=== PATIENT | male | born 1990 | race Caucasian/White ===

== ENCOUNTER 2016-11-02 18:25 | Emergency (ER) | payer MEDICAID, OTHER ==
[~2016-11-02] VITALS: Ht 172.7 cm; Wt 77.1 kg
[2016-11-02 18:25] VITALS: BP 165/115
[~2016-11-02 18:25] MED LIST: ACET500C OR; ALBUTEROL INH; BACT800T5 PO; LORT5TAB PO; MOTR200T4 PO; NAPR500T2 PO; NICO7DIS4 TD
[2016-11-02] MEDS ORDERED: IBUP-1114 PO (18:49)
[2016-11-02] MEDS ORDERED: TIZA4CAP3 PO (18:49)
== END 2016-11-02 21:03 | disposition left against medical advice (07) ==
LOC: M ED 20:14
DX: Z53.29 Procedure and treatment not carried out because of patient's decision for other reasons (principal)

== ENCOUNTER 2017-08-11 17:02 | Emergency (ER) | payer OTHER ==
[~2017-08-11] VITALS: Ht 172.7 cm; Wt 76.4 kg
[2017-08-11 17:02] VITALS: BP 142/71
[~2017-08-11 17:02] MED LIST changes: +IBUP-1114 PO; -NAPR500T2 PO; +NAPR500T3 PO; +TIZA4CAP3 PO
[2017-08-11] MEDS ORDERED: MOBI15TA PO (17:07)
[2017-08-11] MEDS ORDERED: PERC5TAB12 PO (17:23)
[2017-08-11] MEDS ORDERED: AMOX500C PO (17:23)
[2017-08-11] MEDS ORDERED: AMOXICILLIN 500 MG CAP PO ONE (17:30)
== END 2017-08-11 17:42 | disposition home or self-care (01) ==
LOC: M ED 17:02
DX: S02.5XXA Fracture of tooth (traumatic), initial encounter for closed fracture (principal); X58.XXXA Exposure to other specified factors, initial encounter; Y92.89 Other specified places as the place of occurrence of the external cause; Y93.89 Activity, other specified; Y99.9 Unspecified external cause status

== ENCOUNTER 2018-03-27 14:38 | Emergency (ER) | payer OTHER ==
[2018-03-27] MEDS: NAPROXEN 250 MG TAB PO (15:58)
== END 2018-03-27 16:13 | disposition home or self-care (01) ==
LOC: M ED 14:38
DX: M70.22 Olecranon bursitis, left elbow (principal); I10 Essential (primary) hypertension; K21.9 Gastro-esophageal reflux disease without esophagitis; F20.9 Schizophrenia, unspecified; K76.89 Other specified diseases of liver; Z88.5 Allergy status to narcotic agent; Z88.8 Allergy status to other drugs, medicaments and biological substances; Z77.098 Contact with and (suspected) exposure to other hazardous, chiefly nonmedicinal, chemicals
CPT/HCPCS: 99282

== ENCOUNTER 2018-07-13 22:26 | Emergency (ER) | payer OTHER ==
[2018-07-13] MEDS: KETOROLAC 60 MG/2 ML VIAL (J1885) IM (23:23)
[2018-07-13] MEDS: BACTRIM 160MG/800MG DS TAB PO (23:23)
== END 2018-07-13 23:55 | disposition home or self-care (01) ==
LOC: M ED 22:26
DX: L03.114 Cellulitis of left upper limb (principal); B19.20 Unspecified viral hepatitis C without hepatic coma; Z88.5 Allergy status to narcotic agent; Z88.8 Allergy status to other drugs, medicaments and biological substances
CPT/HCPCS: J1885

== ENCOUNTER 2018-08-08 21:20 | Emergency (ER) | payer OTHER | END 2018-08-09 03:08 | disposition left against medical advice (07) | LOC: M ED 08-09 03:08 | DX: M79.603 Pain in arm, unspecified (principal); Z53.21 Procedure and treatment not carried out due to patient leaving prior to being seen by health care provider ==

== ENCOUNTER 2019-01-30 23:26 | Emergency (ER) | payer OTHER, SELFPAY ==
[~2019-01-30] VITALS: Ht 172.7 cm; Wt 92.7 kg
[~2019-01-30 23:26] MED LIST changes: +AMOX500C PO; +IBUP200T45 PO; +MOBI15TA PO; +NAPR-837 PO; +NAPR-885 PO; -NAPR500T3 PO; +NORC1TAB7 PO; +PERC5TAB12 PO; +TIZA4CAP PO; -TIZA4CAP3 PO
[2019-01-31] MEDS ORDERED: FLUORESCEIN OPHTH 1 MG STRIP OS ONE
[2019-01-31] MEDS ORDERED: TETRACAINE 0.5% OPHTH SOLN 4ML OS ONE
[2019-01-31] MEDS ORDERED: CIPROFLOXACIN 0.3% OPHTH SOLN 2.5ML OS ONE (01:00)
[2019-01-31] MEDS ORDERED: CIPR0.3S OS (01:04)
[2019-01-31 01:28] VITALS: BP 137/85
== END 2019-01-31 01:29 | disposition home or self-care (01) ==
LOC: M ED 23:26
DX: S05.02XA Injury of conjunctiva and corneal abrasion without foreign body, left eye, initial encounter (principal); X58.XXXA Exposure to other specified factors, initial encounter; Y92.89 Other specified places as the place of occurrence of the external cause

== ENCOUNTER → 2020-05-13 | Outpatient (CLI) | payer OTHER ==
[~2020-05-13] MED LIST changes: +CIPR0.3S6 OS
[2020-05-13 14:05] LABS: HEMATOCRIT 41.7 % (42.0-52.0); MEAN CORPUSCULAR HEMOGLOBIN 29.3 pg (27.0-33.0); MEAN CORPUSCULAR HGB CONC 33.6 g/dl (32.0-36.5); MEAN CORPUSCULAR VOLUME 87.2 fl (80.0-96.0); PLATELET COUNT, AUTOMATED 299 10^3/uL (150-450); RED BLOOD COUNT 4.78 10^6/uL (4.30-6.10); WHITE BLOOD COUNT 5.3 10^3/uL (4.0-10.0)
[2020-05-13 14:22] LABS: ALBUMIN 3.8 GM/DL (3.2-5.2); ALT/SGPT 66 U/L (12-78); BILIRUBIN,TOTAL 0.2 MG/DL (0.2-1.0); BLOOD UREA NITROGEN 13 MG/DL (7-18); CALCIUM LEVEL 9.2 MG/DL (8.5-10.1); CARBON DIOXIDE LEVEL 31 MEQ/L (21-32); CHLORIDE LEVEL 104 MEQ/L (98-107); CREATININE FOR GFR 0.82 MG/DL (0.70-1.30); GLOMERULAR FILTRATION RATE > 60.0 (>60); GLUCOSE, FASTING 102 MG/DL (70-100); POTASSIUM SERUM 3.9 MEQ/L (3.5-5.1); SODIUM LEVEL 141 MEQ/L (136-145); TOTAL PROTEIN 7.4 GM/DL (6.4-8.2)
[2020-05-13 14:43] LABS: HEPATITIS B SURFACE ANTIGEN NEGATIVE (NEGATIVE)
[2020-05-13 15:11] LABS: HIV 1&2 SCREEN CENTAUR NEGATIVE (NEGATIVE)
[2020-05-13 15:15] LABS: HEPATITIS C VIRUS ABY INDEX 10.5 INDEX (<0.8)
== END ==
LOC: M LAB 12:57
PROVIDERS: ATTEND Family Medicine
DX: F19.20 Other psychoactive substance dependence, uncomplicated (principal)

== ENCOUNTER → 2024-04-22 | Outpatient (CLI) | payer OTHER ==
[~2024-04-22] MED LIST changes: +CIPR0.3S37 OS; -CIPR0.3S6 OS
[2024-04-23 18:57] LABS: GC DNA AMPLIFICATION NEGATIVE (NEGATIVE)
[2024-04-23 19:18] LABS: HEMATOCRIT 40.1 % (42.0-52.0); HEMOGLOBIN 13.5 g/dl (13.5-17.5); MEAN CORPUSCULAR HEMOGLOBIN 29.7 pg (27.0-33.0); MEAN CORPUSCULAR HGB CONC 33.7 g/dl (32.0-36.5); MEAN CORPUSCULAR VOLUME 88.3 fl (80.0-96.0); PLATELET COUNT, AUTOMATED 289 10^3/uL (150-450); RED BLOOD COUNT 4.54 10^6/uL (4.30-6.10); WHITE BLOOD COUNT 6.6 10^3/uL (4.0-10.0)
[2024-04-23 19:48] LABS: ALKALINE PHOSPHATASE 140 U/L (46-116); ALT/SGPT 20 U/L (7.0-40); AST/SGOT 17 U/L (<34); BILIRUBIN,TOTAL 0.3 MG/DL (0.3-1.2); BLOOD UREA NITROGEN 13 MG/DL (9-23); CALCIUM LEVEL 9.4 MG/DL (8.5-10.1); CARBON DIOXIDE LEVEL 29 MMOL/L (20-31); CHLORIDE LEVEL 106 MMOL/L (98-107); CREATININE FOR GFR 0.73 MG/DL (0.70-1.30); GLOMERULAR FILTRATION RATE > 60.0 (>60); GLUCOSE, FASTING 118 MG/DL (60-100); SODIUM LEVEL 141 MMOL/L (136-145); TOTAL PROTEIN 6.8 G/DL (5.7-8.2)
[2024-04-26 16:46] LABS: HEPATITIS B CORE ANTIBODY IGM NEGATIVE (NEGATIVE); HEPATITIS B SURFACE ANTIGEN NEGATIVE (NEGATIVE); HIV 1&2 SCREEN NEGATIVE (NEGATIVE)
[2024-04-26 16:47] LABS: HEPATITIS C VIRUS ABY INDEX 5.48 INDEX (<0.8)
[2024-04-29 11:27] LABS: HCV RNA QUANTITATION <15 NOT DETECTED IU/mL (NOT DETECTED); HCV RNA log10 <1.18 NOT DETECTED Log IU/mL (NOT DETECTED)
== END ==
LOC: M WUC 12:52
PROVIDERS: ATTEND Family Medicine
DX: F11.20 Opioid dependence, uncomplicated (principal)

== ENCOUNTER 2025-03-30 16:42 | Emergency (ER) | payer MEDICAID, OTHER ==
[~2025-03-30] VITALS: Ht 172.7 cm; Wt 96.8 kg
[2025-03-30] MEDS: IBUPROFEN 800 MG TAB PO ONE (18:15)
[2025-03-30] MEDS: ACETAMINOPHEN 325 MG TAB PO ONE (18:16)
[2025-03-30] MEDS: LIDOCAINE 2% MDV 20 ML VIAL SC ONE (19:04)
[2025-03-30 20:10] VITALS: BP 122/66; TEMP 97.6; O2SAT 97
== END 2025-03-30 20:18 | disposition home or self-care (01) ==
LOC: M ED 16:42
DX: S61.214A Laceration without foreign body of right ring finger without damage to nail, initial encounter (principal); S62.614B Displaced fracture of proximal phalanx of right ring finger, initial encounter for open fracture; W23.1XXA Caught, crushed, jammed, or pinched between stationary objects, initial encounter; Z88.5 Allergy status to narcotic agent; Z88.8 Allergy status to other drugs, medicaments and biological substances; Y92.89 Other specified places as the place of occurrence of the external cause; Y93.89 Activity, other specified; Y99.0 Civilian activity done for income or pay